=== PATIENT | female | born 1970 | race African-American/Black ===

== ENCOUNTER 2018-08-08 20:07 | Emergency (ER) | payer BC ==
[~2018-08-08] VITALS: Ht 157.5 cm; Wt 66.0 kg
[2018-08-08 20:14] VITALS: BP 186/100
== END 2018-08-09 00:30 | disposition left against medical advice (07) ==
LOC: ER 20:07
DX: R07.89 Other chest pain (principal); Z53.21 Procedure and treatment not carried out due to patient leaving prior to being seen by health care provider